=== PATIENT | female | born 1955 | race Caucasian/White ===

== ENCOUNTER → 2016-10-16 | Outpatient (CLI) | payer OTHER ==
[~2016-10-16] MED LIST: ASPI325T32 PO; HYDR-3498 PO; PANT40TA4 PO; TRAM50TA2 PO
== END | disposition home or self-care (01) ==
LOC: HKI 10:48
PROVIDERS: ATTEND Orthopaedic Surgery
DX: Z01.818 Encounter for other preprocedural examination (principal); M16.11 Unilateral primary osteoarthritis, right hip
CPT/HCPCS: G0463

== ENCOUNTER 2016-10-22 08:08 | Inpatient (IN) | payer OTHER ==
[2016-10-16 13:22] VITALS: BMI 28.9
[~2016-10-22] VITALS: Ht 175.3 cm; Wt 87.2 kg
[2016-10-22] VITALS (47 sets, daily range): BP systolic 113–146; BP diastolic 61–81; PULSE 48–65; RESP 10–31; Ht 175.3 cm; Wt 87.2 kg
[2016-10-22] MEDS: LACTATED RINGER'S 1,000 ML IV SCH ×4 (07:00→21:20)
[~2016-10-22 08:08] MED LIST changes: -ASPI325T32 PO; +BUPIVACAINE LIPOSOME/PF 266 MG/20 ML VIAL INFIL ONE; +CEFAZOLIN 2GM/50 ML (PMX) 50 ML X1 BEFORE INCISION IVPB ONE; +CELECOXIB 400 MG PO X1 DOSE PO ONE; -HYDR-3498 PO; +LACTATED RINGER'S 1,000 ML IV SCH; +LIDOCAINE 2% (SDV) 5 ML INJ ONE; +PAIN COCKTAIL-CEFUROXIME IRR ONE; -PANT40TA4 PO; +PREGABALIN 300 MG PO X1 PO ONE; +SOD CHLORIDE 0.9% IV ONE; -TRAM50TA2 PO; +TRANEXAMIC ACID 880 MG in SOD CHLORIDE 0.9% 100 ML IVPB ONE; +TRANEXAMIC ACID 890 MG in SOD CHLORIDE 0.9% 100 ML IVPB ONE; +TRANEXAMIC ACID IV ONE; +oxyCODONE (CR) 10 MG TAB [oxyCONTIN] X1 DOSE PO ONE; +traMADOL 50 MG TAB X 1 DOSE PO ONE
[2016-10-22] MEDS ORDERED: EXPAREL NOTE (BUPIVICAINE LIPOSOMAL) XX SCH ×2 (09:00→18:00)
[2016-10-22] MEDS ORDERED: FENTAnyl 50 MCG/ML VIAL ONE (09:39)
[2016-10-22] MEDS ORDERED: GLYCOPYRROLATE 0.4 MG INJ ONE (09:39)
[2016-10-22] MEDS ORDERED: MIDAZOLAM 1 MG/ML 2 ML INJ ONE (09:39)
[2016-10-22] MEDS ORDERED: ROCURONIUM 50 MG INJ ONE (09:39)
[2016-10-22] MEDS ORDERED: ONDANSETRON 4 MG INJ ONE (09:39)
[2016-10-22] MEDS ORDERED: NEOSTIGMINE 3 MG/3 ML SYRINGE ONE (09:39)
[2016-10-22] MEDS ORDERED: PROPOFOL 20 ML ONE (09:39)
[2016-10-22] MEDS ORDERED: CEFAZOLIN 1 GM INJ ONE (09:39)
[2016-10-22] MEDS ORDERED: DEXAMETHASONE 4 MG/ML 1 ML INJ ONE (09:40)
--- NOTE | 2016-10-22 10:19 | HPN ---
Date/Time of Note Date/Time of Note DATE: 10/22/16 TIME: 10:18 Interval H&P Admission Note Pt. seen H&P reviewed: No system changes No changes from H&P on 10/07/16 by DEYANIRA Angel MD October 22, 2016 10:19
[2016-10-22] MEDS ORDERED: VANCOMYCIN 1 GM INJ ONE (10:49)
[2016-10-22] MEDS ORDERED: POLYMYXIN B 500000 UNIT INJ ONE (10:49)
[2016-10-22] MEDS ORDERED: PROPOFOL 100 ML ONE (11:55)
[2016-10-22] MEDS ORDERED: DIPHENHYDRAMINE 50 MG INJ IV PRN (12:00)
[2016-10-22] MEDS ORDERED: LABETALOL HCL 20MG INJ IV PRN (12:00)
[2016-10-22] MEDS ORDERED: MIDAZOLAM 1 MG/ML 2 ML INJ IV PRN (12:00)
[2016-10-22] MEDS ORDERED: HYDROmorphONE (0.2 MG/ML) 10ML SYG IV PRN ×3 (12:00)
[2016-10-22] MEDS ORDERED: TRIMETHOBENZAMIDE 100 MG/ML VIAL IM PRN (12:00)
[2016-10-22] MEDS ORDERED: EPHEDrine SULFATE 50 MG/5 ML SYG IV PRN (12:00)
[2016-10-22] MEDS ORDERED: FENTAnyl 50 MCG/ML VIAL IV PRN ×3 (12:00)
[2016-10-22] MEDS ORDERED: hydrALAzine 20 MG INJ IV PRN (12:00)
[2016-10-22] MEDS ORDERED: MEPERIDINE 25 MG INJ IV PRN (12:00)
[2016-10-22] MEDS ORDERED: ONDANSETRON 4 MG INJ IV PRN ×2 (12:00→14:00)
[2016-10-22] MEDS ORDERED: BACITRACIN 50000 UNITS INJ IRR ONE (12:00)
[2016-10-22] MEDS ORDERED: BACITRACIN 50000 UNITS INJ ONE (12:05)
--- NOTE | 2016-10-22 13:28 | RADRPT ---
PROCEDURE: Fluoroscopic guidance with x-ray images during right total hip replacement. CLINICAL INDICATION: Right total hip replacement. TECHNIQUE: 11 x-ray images were obtained during right total hip replacement. COMPARISON: None available FINDINGS: 8.4 of fluoroscopy time was utilized during pacemaker insertion. 11 x-ray images were obtained duri ng the procedure in progress for guidance. Cumulative dose total is 5.88 mGy and 0.174 mGym2. The ri ght total hip replacement is in good position and alignment. No acute osseous fractures seen. Proc edure was performed by . IMPRESSION: 1. Fluoroscopic guidance with x-ray images obtained for right total hip replacement. RPTAT: XX .Shahzad Olson MD, Date Time Electronically viewed and signed by .Shahzad Olson MD, on 10/22/2016 13:28 .T/
--- NOTE | 2016-10-22 13:35 | OPR ---
Date/Time of Note Date/Time of Note DATE: 10/22/16 TIME: 13:34 Operative Report Free Text/Dictation Dictation # [id number] Procedure Date: October 22, 2016 Preoperative Diagnosis Right Hip OA Postoperative Diagnosis Same Operation Performed Right Anterior ARIELA Surgeon: DEYANIRA MOORE MD librarian assistant: PAULO ANTON PA-C Anesthesia: general, spinal Anesthesiologist: Oscar Garber M.D. Estimated Blood Loss: 250 - 300 ml's Specimens Femoral Head Tubes/Drains Hemovac x 1 Complications: None Pt Condition Post Procedure: stable Disposition: PACU DEYANIRA MOORE MD October 22, 2016 13:35
[2016-10-22] MEDS ORDERED: NA PHOSPHATE/BIPHOS 133 ML ENEMA PR PRN (14:00)
[2016-10-22] MEDS ORDERED: MAGNESIUM HYDROXIDE 30ML CUP PO PRN (14:00)
[2016-10-22] MEDS: CEFAZOLIN 2 GM/50 ML (PMX) 50 ML IVPB SCH ×2 (14:00→21:58)
[2016-10-22] MEDS ORDERED: ASPIRIN (EC) 325 MG TAB PO ONE (14:00)
[2016-10-22] MEDS ORDERED: DIPHENHYDRAMINE 25 MG CAP PO PRN (14:00)
[2016-10-22] MEDS ORDERED: HYDROmorphONE 1 MG/ML SYG IV PRN (14:00)
[2016-10-22] MEDS ORDERED: BISACODYL 10 MG SUPP PR PRN (14:00)
[2016-10-22] MEDS ORDERED: NACL 0.9% 3 ML SYG IV SCH (14:00)
[2016-10-22 14:02] LABS: HEMATOCRIT 30.8 % (37.0-47.0); HEMOGLOBIN 10.5 g/dl (12.0-16.0)
[2016-10-22 14:04] LABS: CALCIUM 8.6 mg/dl (8.4-10.2); CREATININE 0.56 mg/dl (0.44-1.00); POTASSIUM 3.7 mmol/L (3.5-5.1)
--- NOTE | 2016-10-22 14:20 | OPR ---
DATE OF OPERATION: 10/22/2016 PREOPERATIVE DIAGNOSIS: Right hip osteoarthritis. POSTOPERATIVE DIAGNOSIS: Right hip osteoarthritis. OPERATION PERFORMED: Right anterior total hip arthroplasty. SURGEON: Deyanira Waggoner MD TRANSITION SOCIAL WORKER: GAEL Teran COMPONENTS USED: DePuy size 54 mm Gription [place] cup, 54/36 neutral AltrX polyethylene liner, si ze 6 standard Actis stem, 36+1.5 ceramic head. ANESTHESIA: Spinal plus general endotracheal intubation plus periarticular injection. ANESTHESIOLOGIST: Dr. Jcarlos MD ESTIMATED BLOOD LOSS: 300 mL. INTRAVENOUS FLUIDS: Two liters crystalloid. SPECIMENS: Femoral head. DRAINS: Hemovac x1. COMPLICATIONS: None. DISPOSITION: Patient tolerated procedure well and was taken to the recovery room in stable [facility] n. INDICATIONS: The patient is a 60-year-old woman who has had progressive worsening pain in the right hip with radiographic evidence of severe osteoarthritis. She has failed nonsurgical means of treat ment to control her pain including activity modifications, pain medications and ambulatory assist de vices. Despite these measures, she has had worsening pain and I felt she would benefit from a total hip arthroplasty through an anterior approach. I felt the patient would benefit from a total hip arthroplasty through an anterior approach. The risks, benefits, and alternatives of the procedure were explained in detail to the patient. I e xplained the risks of the surgery to include, but not be limited to: bleeding and possible need for blood transfusion; infection; pain; stiffness; neurovascular injury with possible numbness, weakness , and/or paralysis anywhere from the hip down to the toes; fracture; instability; dislocation; leg l ength inequality; wear and/or loosening of the prosthesis and possible need for future revision; blo od clots; pulmonary embolism; and anesthetic complications such as heart attack, stroke, GI bleed, p neumonia, and/or . Ample time was allowed for the patient to ask questions, all of which were addressed and answered. The patient understood the risks involved and wished to proceed. Informed c onsent was signed prior to the procedure. PROCEDURE: The patient's right hip was initialed with a marking pen in the preoperative area to iden tify the correct operative site. The patient was brought to the operating room and transferred from the [facility] to the CECIL table where a spinal anesthetic was administered. The patient was then anesthetized and intubated. A Casas catheter was placed. Both feet were placed into well-padd ed boots which were then placed into the leg holders of the traction booms. A timeout was performed to confirm that the right side was the correct operative site. The patient was given 2 g of intrav enous Ancef within one hour prior to the procedure. The operative hip was prepped and draped in the usual sterile fashion. A 10 cm oblique incision was made over the anterior aspect of the hip and carried down through subcu taneous tissue and fat with sharp dissection. The tensor fascia yomaira was incised along the length o f the wound. The tensor fascia muscle was retracted laterally and the sartorius medially. The anter ior circumflex vessels were identified and tied off with 2-0 silk suture and coagulated with the [employer] chester [employer] driver. The rectus femoris was elevated off the anterior capsule and an anterior capsu lectomy performed. A femoral neck osteotomy was made and the head removed from the acetabulum. The acetabulum was denuded of cartilage circumferentially, as was the femoral head. Retractors were pl aced around the acetabulum. The remnants of the labrum and ligamentum teres were excised. I reamed the acetabulum to the medial wall and then went into an anatomic position and increased the reamer size in 2 mm increments until I got a good bite and was down to bleeding subchondral bone. The [place] cup was opened and impacted into the acetabulum and sat flush circumferentially, gettin g a good bite. C-arm imaging showed it had about 40 to 45 degrees of abduction and 20 degrees of ant eversion. (The real liner was opened and impacted into the acetabulum and sat flush circumferentiall y. Attention was turned towards the femur. The operative leg was carefully lowered to the floor with the leg adducted. The foot was then exter dinora rotated to approximately 110 degrees. A posteromedial release was performed to optimize expos ure. The femoral hook was placed underneath the proximal femur and the hydraulic lift was then used to elevate the femur up out of the wound. The dallin cutter osteotome was used to remove the remai xenia overhanging greater trochanter. The femur was then broached, going up in one size increments u ntil it sat flush with the neck cut and a stable fit was achieved. The trial neck and head were ass embled and reduced into the acetabulum. Fluoroscopic imaging showed the components to be in good pos ition and the leg lengths and offsets to be equal. At this point, the trial was dislocated and the trial broach removed. The canal was irrigated and d ried. The real stem was opened and impacted into the femur. The trunnion was irrigated and dried, a nd the real femoral head was impacted onto the trunnion, and reduced into the acetabulum. The soft tissues were infiltrated with a mixture of 150 mg of 0.5% Bupivacaine, 8 mg of Duramorph, 3 00 mcg of epinephrine, 30 mg of Toradol, 100 mcg of clonidine, 750 mg of cefuroxime and 86 mL of nor mal saline, followed by an injection of 266 mg of liposomal Bupivacaine. At this point the hip was irrigated with a mixture of betadine/saline and then antibiotic saline with pulsatile lavage. A Hem ovac drain was placed in the deep portion of the wound and brought out the anterolateral thigh. Ther e was good hemostasis. The tensor fascia yomaira was repaired with a running #1 Vicryl. The deep fat layer was irrigated and closed with 2-0 Stratafix and the subcutaneous layer closed with 3-0 Vicryl and the skin was closed with corazon and then sealed with Dermabond. The drain was secured with 3-0 nylon. The sponge and needle counts were correct at the end of the case. The wound was covered with an occ lusive dressing. The patient was awakened, extubated, and taken to the recovery room in stable cond ition. Dictated By: DEYANIRA PIERRE/BIJAN Conf#: [id number] DID#: [id number]
--- NOTE | 2016-10-22 14:38 | RADRPT ---
PROCEDURE: XR Pelvis. CLINICAL INDICATION: Status post right hip replacement. TECHNIQUE: Single low AP view of the pelvis. COMPARISON: April 29, 2016 FINDINGS: Right hip replacement is identified. The prosthetic components are in appropriate position and alig nment. The osseous structures are intact. No destructive bony lesions are observed. Mild narrowin g of the left hip joint is identified. Surgical drain is seen of the left hip. Soft tissue air ove r the left hip is procedural in nature. Multiple phleboliths are noted in the pelvis.. IMPRESSION: Right hip replacement. Prosthetic components are in appropriate position and alignment. Mild osteoarthritis of the left hip. RPTAT: AA .Weston Tse MD, MD Date Time Electronically viewed and signed by .Weston Tse MD, on 10/22/2016 14:38 .P/
--- NOTE | 2016-10-22 16:07 | CONS ---
Date/Time of Note Date/Time of Note DATE: 10/22/16 TIME: 16:01 Assessment/Plan Assessment/Plan Chief Complaint/Hosp Course Very pleasant 60-year-old female who was admitted for elective right total hip arthroplasty with no significant past medical history for whom we are consulted for medical management. PLAN: * Supportive care / Pain control / antiemetics as needed * Prophylaxis: PPI for GI / DVT per Ortho Problems: Consultation Date/Type/Reason Admit Date/Time October 22, 2016 at 08:08 Date of Consultation: October 22, 2016 Type of Consultation: Medical Reason for Consultation Medical management Referring Provider: DEYANIRA MOORE MD Hx of Present Illness This is a 60-year-old female who was admitted for an elective total right hip arthroplasty. She has undergone the posterior procedure without difficulty or complication and she is being admitted for postop care management. We have been consulted for medical management. Her only medical history is arthritis and that right hip, and this is likely due to abnormalities in gait. At this time the patient is quite alert and she is in a fairly good mood. Regarding pain she reports being quite comfortable. She has no other symptoms. She is optimistic about leaving the hospital as soon as possible. Past Medical History * Osteoarthritis right hip. Past Surgical History Breast lumpectomy 3 Pilonidal cyst excision oophorectomy . Family History Significant Family History: no pertinent family hx Social History Alcohol Use: none Smoking Status: Former smoker (Very many years ago) Drug Use: none Exam/Review of Systems Vital Signs Vitals VS - Last 72 Hours, by Label Date Time Temp Pulse Resp B/P Pulse Ox O2 Delivery O2 Flow Rate FiO2 10/22/16 15:19 49 21 131/72 100 Nasal Cannula 2.0 10/22/16 15:14 49 18 126/67 100 Nasal Cannula 2.0 10/22/16 15:09 60 21 120/75 100 Nasal Cannula 2.0 10/22/16 15:04 58 22 124/65 100 Nasal Cannula 2.0 10/22/16 14:59 62 18 129/68 99 Nasal Cannula 2.0 10/22/16 14:54 60 19 136/69 100 Nasal Cannula 2.0 10/22/16 14:49 60 20 130/78 100 Nasal Cannula 2.0 10/22/16 14:44 60 21 130/78 100 Nasal Cannula 2.0 10/22/16 14:39 58 15 140/72 100 Nasal Cannula 2.0 10/22/16 14:34 60 20 129/72 100 Nasal Cannula 2.0 10/22/16 14:29 60 20 128/72 100 Nasal Cannula 2.0 10/22/16 14:24 64 21 127/78 100 Nasal Cannula 2.0 10/22/16 14:19 64 17 127/76 100 Nasal Cannula 2.0 10/22/16 14:14 60 17 120/79 100 Nasal Cannula 2.0 10/22/16 14:09 58 17 126/77 100 Nasal Cannula 2.0 10/22/16 14:04 58 17 125/81 100 Nasal Cannula 2.0 10/22/16 13:59 62 17 121/76 100 Nasal Cannula 2.0 10/22/16 13:54 60 19 126/77 100 Nasal Cannula 2.0 10/22/16 13:49 52 20 136/68 100 Nasal Cannula 2.0 10/22/16 13:44 58 16 113/68 100 Nasal Cannula 2.0 10/22/16 13:39 62 18 123/75 100 Nasal Cannula 2.0 10/22/16 13:39 98.6 10/22/16 13:35 62 18 123/75 100 Nasal Cannula 2.0 10/22/16 13:30 98.6 65 18 115/68 99 Nasal Cannula 2.0 10/22/16 09:25 97.6 57 16 136/78 98 Room Air Vital Signs Date Time Temp Pulse Resp B/P Pulse Ox O2 Delivery O2 Flow Rate FiO2 10/22/16 15:19 49 21 131/72 100 Nasal Cannula 2.0 10/22/16 13:39 98.6 Exam GENERAL: Patient is alert, oriented x 3, in no apparent distress; does not appear acutely or chronically ill. .Patient makes good eye contact, is conversant, interactive, coherent. Patient appears calm and comfortable and is able to follow commands. HEENT: Oropharynx is clear. There is no carotid bruit, no masses. Patient's pupils are equal, round and reactive to light bilaterally. Extraocular motions are intact. There is no scleral icterus. There is no facial asymmetry. NECK: Supple. LUNGS: Clear to auscultation bilaterally with good air entry. No Wheezes or crackles. HEART: S1, S2. No murmur, gallops or rubs. Regular rate and rhythm. ABDOMEN: Soft, nontender. Normoactive bowel sounds. There are no stigmata of chronic liver disease. BACK: no costovertebral angle tenderness. GENITOURINARY: Deferred. EXTREMITIES: No edema. There is no cyanosis, clubbing. There are 2+ pulses bilaterally distally. Lateral side of right hip is covered in Silvadene dressing with tiny drain in place. NEUROLOGIC: The patient has no lateralizing signs. Cranial nerves II-XII are intact. Results Result Diagram: 10/22/16 1330 10/22/16 1330 Results 24 hrs Laboratory Tests Test 10/22/16 13:30 Hemoglobin 10.5 L Hematocrit 30.8 L Sodium Level 139 Potassium Level 3.7 Chloride Level 111 H Carbon Dioxide Level 26 Anion Gap 6 L Blood Urea Nitrogen 10 Creatinine 0.56 Glucose Level 127 Calcium Level 8.6 Medications Medications Current Medications Lactated Ringer's (Lr) 1,000 ml @ 100 mls/hr Q10H IV ; Start 10/22/16 at 07:00 Miscellaneous Information 1 ea 1 ea NOTE XX ; Start 10/22/16 at 09:00; Stop 10/26 at 08:59 Lactated Ringer's (Lr) 1,000 ml @ 125 mls/hr Q8H IV ; Start 10/22/16 at 13:33 Celecoxib (Celebrex) 200 mg DAILY PO ; Start 10/23/16 at 09:00 Tramadol HCl (Ultram) 50 mg Q6 PO ; Start 10/22/16 at 18:00; Stop 10/25/16 at 17: 59 Acetaminophen/ Hydrocodone Bitart ([place] (5/325)) 1 tab Q4H PRN PO PAIN LEVEL 1 -3; Start 10/22/16 at 14:00 Acetaminophen/ Hydrocodone Bitart ([place] (5/325)) 2 tab Q4H PRN PO PAIN LEVEL 4 -7; Start 10/22/16 at 14:00 Hydromorphone HCl 1 mg 1 mg Q3H PRN IV PAIN LEVEL 8-10; Start 10/22/16 at 14:00 Cefazolin Sodium/ Dextrose (Ancef 2 Gm/50 ml (Pmx)) 50 ml @ 100 mls/hr Q8H IVPB ; Start 5/30/17 at 14:00; Stop 10/23/16 at 06:29 Ondansetron HCl (Zofran Inj) 4 mg Q6H PRN IV NAUSEA AND/OR VOMITING; Start at 14:00 Bisacodyl (Dulcolax Supp) 10 mg Q12H PRN MD CONSTIPATION; Start 10/22/16 at 14: 00 Magnesium Hydroxide (Milk Of Mag) 30 ml BID PRN PO CONSTIPATION; Start at 14:00 Sodium Biphosphate/ Sodium Phosphate (Fleet Enema) 133 ml DAILY PRN MD CONSTIPATION; Start 10/22/16 at 14:00 Docusate Sodium (Colace) 100 mg BID PO ; Start 10/22/16 at 21:00 Diphenhydramine HCl (Benadryl) 25 mg Q6H PRN PO PRURITUS; Start 10/22/16 at 14: 00 Aspirin (Ecotrin) 325 mg BID PO ; Start 10/23/16 at 09:00 Pantoprazole (Protonix Tab) 40 mg BID@06,18 PO ; Start 10/22/16 at 18:[address] that, since thisPROCEDURE: XR Pelvis. CLINICAL INDICATION: Status post right hip replacement. TECHNIQUE: Single low AP view of the pelvis. COMPARISON: April 29, 2016 FINDINGS: Right hip replacement is identified. The prosthetic components are in appropriate position and alignment. The osseous structures are intact. No destructive bony lesions are observed. Mild narrowing of the left hip joint is identified. Surgical drain is seen of the left hip. Soft tissue air over the left hip is procedural in nature. Multiple phleboliths are noted in the pelvis.. IMPRESSION: Right hip replacement. Prosthetic components are in appropriate position and alignment. Mild osteoarthritis of the left hip. RPTAT: AA .Weston Tse MD, MD Date Time Electronically viewed and signed by .Weston Tse MD, MD on 10/22/2016 14:38 .P/ CC: PAULO ANTON PA-C MEETA PULIDO October 22, 2016 16:07
--- NOTE | 2016-10-22 16:44 | PN ---
Date/Time of Note Date/Time of Note DATE: 10/22/16 TIME: 16:42 Assessment/Plan Lines/Catheters IV Catheter Type (from Nrsg): Peripheral IV Nevarez in Place (from Nrsg): Yes Assessment/Plan Assessment/Plan Stable in PACU, s/p right anterior ARIELA -continue Ancef until drains removed -pain meds as needed -ASA/SCDs for DVT prophylaxis -OOB with PT -check AM labs -monitor drain -d/c nevarez in AM XR of the right hip shows good alignment with no evidence of fracture or dislocation Subjective 24 Hr Interval Summary Stable in PACU. Denies pain. Moving all extremities. Exam/Review of Systems Vital Signs Vitals Vital Signs Date Time Temp Pulse Resp B/P Pulse Ox O2 Delivery O2 Flow Rate FiO2 10/22/16 16:10 50 13 122/72 100 Nasal Cannula 2.0 10/22/16 13:39 98.6 Exam Free Text/Dictation Hemovac: minimal Dressing dry Incision clean, dry, and intact without redness or drainage 09/27 Quadriceps, Tibialis Anterior, EHL, Gastroc, Soleus, Peroneals Normal sensation Palpable DT/PT, CR <2 sec No distal edema Results Result Diagram: 10/22/16 1330 10/22/16 1330 PAULO ANTON PA-C October 22, 2016 16:43
[2016-10-22] MEDS: HYDROCODONE/APAP (5/325) TAB PO PRN ×2 (16:45→17:00)
[2016-10-22] MEDS ORDERED: TRANEXAMIC ACID 870 MG in SOD CHLORIDE 0.9% 100 ML IVPB ONE ×2 (17:00→20:00)
[2016-10-22] MEDS: traMADol 50 MG TAB PO SCH (18:07)
[2016-10-22] MEDS: PANTOPRAZOLE (EC) 40 MG TAB PO SCH (18:07)
[2016-10-22] MEDS ORDERED: VITAMIN A & D 5 GM OINT PACKET TOP ONE (19:51)
[2016-10-22] MEDS: DOCUSATE SODIUM 100 MG CAP PO SCH (20:14)
[2016-10-23 00:40] VITALS: BP 145/74; PULSE 60; RESP 18
[2016-10-23] MEDS: LACTATED RINGER'S 1,000 ML IV SCH ×2 (02:50→05:06)
[2016-10-23 05:03] LABS: HEMATOCRIT 31.5 % (37.0-47.0); HEMOGLOBIN 10.3 g/dl (12.0-16.0)
[2016-10-23] MEDS: CEFAZOLIN 2 GM/50 ML (PMX) 50 ML IVPB SCH (05:03)
[2016-10-23] MEDS: PANTOPRAZOLE (EC) 40 MG TAB PO SCH ×2 (05:05→17:39)
[2016-10-23] MEDS: traMADol 50 MG TAB PO SCH ×4 (05:05→17:40)
[2016-10-23 05:46] LABS: POTASSIUM 4.7 mmol/L (3.5-5.1)
[2016-10-23 05:48] LABS: CREATININE 0.69 mg/dl (0.44-1.00)
[2016-10-23 05:49] LABS: CALCIUM 8.6 mg/dl (8.4-10.2)
[2016-10-23 07:35] VITALS: BP 111/60; RESP 18
--- NOTE | 2016-10-23 08:36 | PN ---
Date/Time of Note Date/Time of Note DATE: 10/23/16 TIME: 08:35 Assessment/Plan Lines/Catheters IV Catheter Type (from Nrsg): Peripheral IV Casas in Place (from Nrsg): Yes Assessment/Plan Assessment/Plan Stable POD #1, s/p right anterior ARIELA -d/c Ancef -pain meds as needed -ASA/SCDs for DVT prophylaxis -OOB with PT -check AM labs -drain removed -d/c planning. Will plan to go home upon discharge Subjective 24 Hr Interval Summary No acute overnight events. Denies significant pain. Did not start PT yesterday. VSS, afebrile. Will plan for home upon discharge. Exam/Review of Systems Vital Signs Vitals Vital Signs Date Time Temp Pulse Resp B/P Pulse Ox O2 Delivery O2 Flow Rate FiO2 10/23/16 07:35 98.0 60 18 111/60 99 10/23/16 00:40 Nasal Cannula 2.0 Intake and Output 10/22/16 10/22/16 10/23/16 15:00 23:00 07:00 Intake Total 3000 ml 608.7 ml 2250 ml Output Total 1150 ml 1230 ml 1880 ml Balance 1850 ml -621.3 ml 370 ml Exam Free Text/Dictation Hemovac: 210cc Dressing dry Incision clean, dry, and intact without redness or drainage 5 Quadriceps, Tibialis Anterior, EHL, Gastroc, Soleus, Peroneals Normal sensation Palpable DT/PT, CR <2 sec No distal edema Results Result Diagram: 10/23/168 10/23/16 0448 PAULO ANTON PA-C October 23, 2016 08:36
[2016-10-23] MEDS: CELECOXIB 200 MG CAP PO SCH (08:53)
[2016-10-23] MEDS: DOCUSATE SODIUM 100 MG CAP PO SCH ×2 (08:53→21:36)
[2016-10-23] MEDS: ASPIRIN (EC) 325 MG TAB PO SCH ×2 (08:53→21:36)
[2016-10-23] MEDS: HYDROCODONE/APAP (5/325) TAB PO PRN ×2 (09:00→14:56)
--- NOTE | 2016-10-23 09:01 | PN ---
Date/Time of Note Date/Time of Note DATE: 10/23/16 TIME: 08:39 Assessment/Plan VTE Prophylaxis VTE Prophylaxis Intervention: SCD's Lines/Catheters IV Catheter Type (from Nrsg): Peripheral IV Urinary Cath still in place: Yes Reason Cath still needed: other (indicate) Assessment/Plan Chief Complaint/Hosp Course Very pleasant 60-year-old female who was admitted for elective right total hip arthroplasty with no significant past medical history for whom we are consulted for medical management. PLAN: * Continue Supportive care / Pain control / antiemetics as needed * PT eval pending / KVO IV if patient is tolerating diet * Prophylaxis: PPI for GI / DVT per Ortho Problems: Subjective 24 Hr Interval Summary Free Text/Dictation Patient seen and examined. no new issues awaiting PT eval Exam/Review of Systems Vital Signs Vitals Vital Signs Date Time Temp Pulse Resp B/P Pulse Ox O2 Delivery O2 Flow Rate FiO2 10/23/16 07:35 98.0 60 18 111/60 99 10/23/16 00:40 Nasal Cannula 2.0 Intake and Output 10/22/16 10/22/16 10/23/16 15:00 23:00 07:00 Intake Total 3000 ml 608.7 ml 2250 ml Output Total 1150 ml 1230 ml 1880 ml Balance 1850 ml -621.3 ml 370 ml Exam GENERAL: Patient is alert, oriented x 3, in no apparent distress; does not appear acutely or chronically ill. .Patient makes good eye contact, is conversant, interactive, coherent. Patient appears calm and comfortable and is able to follow commands. HEENT: Oropharynx is clear. There is no carotid bruit, no masses. Patient's pupils are equal, round and reactive to light bilaterally. Extraocular motions are intact. There is no scleral icterus. There is no facial asymmetry. NECK: Supple. LUNGS: Clear to auscultation bilaterally with good air entry. No Wheezes or crackles. HEART: S1, S2. No murmur, gallops or rubs. Regular rate and rhythm. ABDOMEN: Soft, nontender. Normoactive bowel sounds. There are no stigmata of chronic liver disease. BACK: no costovertebral angle tenderness. GENITOURINARY: Deferred. EXTREMITIES: No edema. There is no cyanosis, clubbing. There are 2+ pulses bilaterally distally. Lateral side of right hip is covered in Silvadene dressing with tiny drain in place. NEUROLOGIC: The patient has no lateralizing signs. Cranial nerves II-XII are intact. Results Result Diagram: 10/23/16 0448 10/23/16 0448 Results 24 hrs Laboratory Tests Test 10/22/16 13:30 10/23/16 04:48 Hemoglobin 10.5 L 10.3 L Hematocrit 30.8 L 31.5 L Sodium Level 139 140 Potassium Level 3.7 4.7 Chloride Level 111 H 111 H Carbon Dioxide Level 26 30 Anion Gap 6 L 4 L Blood Urea Nitrogen 10 11 Creatinine 0.56 0.69 Glucose Level 127 133 Calcium Level 8.6 8.6 Medications Medications Current Medications Lactated Ringer's (Lr) 1,000 ml @ 100 mls/hr Q10H IV Last administered on 10/23 02:50; Admin Dose 100 MLS/HR; Start 10/22/16 at 07:00 Miscellaneous Information 1 ea 1 ea NOTE XX ; Start 10/22/16 at 09:00; Stop 10/26 at 08:59 Lactated Ringer's (Lr) 1,000 ml @ 125 mls/hr Q8H IV Last administered on 18:14; Admin Dose 125 MLS/HR; Start 10/22/16 at 13:33 Celecoxib (Celebrex) 200 mg DAILY PO ; Start 10/23/16 at 09:00 Tramadol HCl (Ultram) 50 mg Q6 PO Last administered on 10/23/16 05:05; Admin Dose 50 MG; Start 10/22/16 at 18:00; Stop 10/25/16 at 17:59 Acetaminophen/ Hydrocodone Bitart ([place] (5/325)) 1 tab Q4H PRN PO PAIN LEVEL 1 -3 Last administered on 10/22/16 17:00; Admin Dose 1 TAB; Start 10/22/16 at 14: 00 Acetaminophen/ Hydrocodone Bitart ([place] (5/325)) 2 tab Q4H PRN PO PAIN LEVEL 4 -7; Start 10/22/16 at 14:00 Hydromorphone HCl (Dilaudid) 1 mg Q3H PRN IV PAIN LEVEL 8-10; Start 10/22/16 at 14:00 Ondansetron HCl (Zofran Inj) 4 mg Q6H PRN IV NAUSEA AND/OR VOMITING; Start at 14:00 Bisacodyl (Dulcolax Supp) 10 mg Q12H PRN [place] CONSTIPATION; Start 10/22/16 at 14: 00 Magnesium Hydroxide (Milk Of Mag) 30 ml BID PRN PO CONSTIPATION; Start at 14:00 Sodium Biphosphate/ Sodium Phosphate (Fleet Enema) 133 ml DAILY PRN [place] CONSTIPATION; Start 10/22/16 at 14:00 Docusate Sodium (Colace) 100 mg BID PO ; Start 10/22/16 at 21:00 Diphenhydramine HCl (Benadryl) 25 mg Q6H PRN PO PRURITUS; Start 10/22/16 at 14: 00 Aspirin (Ecotrin) 325 mg BID PO ; Start 10/23/16 at 09:00 Pantoprazole (Protonix Tab) 40 mg BID@06,18 PO Last administered on 10/23/16t 05:05; Admin Dose 40 MG; Start 10/22/16 at 18:00 MEETA PULIDO October 23, 2016 08:49
[2016-10-23 09:06] LABS: ALBUMIN 3.4 g/dl (3.3-4.9); TOTAL PROTEIN 5.4 g/dl (6.1-8.1)
[2016-10-23 09:07] LABS: BILIRUBIN,INDIRECT 0.5 mg/dl (0-1.1); BILIRUBIN,TOTAL 0.5 mg/dl (0.2-1.3); CHOL/HDL RATIO 1.8 RATIO
[2016-10-23 09:35] LABS: THYROID STIMULATING HORMONE 0.683 MIU/L (0.465-4.680)
[2016-10-23 19:51] VITALS: BP 108/60; RESP 20
[2016-10-24] MEDS: traMADol 50 MG TAB PO SCH ×3 (00:18→12:09)
[2016-10-24] MEDS: HYDROCODONE/APAP (5/325) TAB PO PRN (02:50)
[2016-10-24 05:16] LABS: HEMATOCRIT 29.5 % (37.0-47.0); HEMOGLOBIN 9.6 g/dl (12.0-16.0)
[2016-10-24] MEDS: PANTOPRAZOLE (EC) 40 MG TAB PO SCH (05:22)
[2016-10-24 05:48] LABS: CALCIUM 8.5 mg/dl (8.4-10.2); CREATININE 0.68 mg/dl (0.44-1.00); POTASSIUM 4.4 mmol/L (3.5-5.1)
--- NOTE | 2016-10-24 07:28 | PDOCDIS ---
Discharge Instructions DIAGNOSIS Discharge Diagnosis: s/p right anterior ARIELA CONDITION Patient Condition: Good HOME CARE INSTRUCTIONS: Diet Instructions: Regular ACTIVITY: Activity Restrictions: Slowly Increase Activity Rest between Activity Avoid heavy lifting Do not operate Machinery Do not operate Power Tool Avoid Heavy Housework Keep Limb Elevated Bathing Restrictions: Shower FOLLOW UP/APPOINTMENTS Appointments follow up in the office on 11/01/16 OTHER ORDERS: Other Orders: S/P Anterior ARIELA Physical Therapy: Three times per week at home x 2 weeks Daily in Rehab/SNF WB STATUS: WBAT Strengthening exercises for both upper and un-operated lower extremities. 1. Gait training with front wheeled walker 2. Wide base gait, no pivot turns. 3. Abductor strengthening. 4. Quadriceps and hamstring strengthening. 5. May switch to cane in contra lateral hand 6 weeks after surgery. 6. Physical Therapy can open case if nursing is not available. 7. Ice Packs while at rest to surgical wound for 20 minutes, 3 times/day. 8. Patient requires mobile SCDs to reduce risk of developing DVT following ARIELA. Patient will use the mobile SCDs for 30 days postoperatively. Hip Precautions: No posterior hip precautions. Bathing assistance by home health aide twice weekly if Medicare patient. Occupational Therapy: Evaluation for assistive devices and ADL training. Wound Care: Keep incision dry & covered with Tegaderm until first visit with Dr. Waggoner Anticoagulation Orders: Enteric Coated Aspirin 325 mg po bid x 6 weeks from date of surgery Follow-up:Call for an appointment with Dr. Waggoner in 1 week after discharged from hospital at DME Orders: ZAC, 3-in-1 Commode, Mobile SCDs PAULO ANTON PA-C Oct 24, 2016 07:28
[2016-10-24] MEDS ORDERED: PANT40TA4 PO (07:30)
[2016-10-24] MEDS ORDERED: HYDR-3498 PO (07:30)
[2016-10-24] MEDS ORDERED: TRAM50TA2 PO (07:30)
[2016-10-24] MEDS ORDERED: ASPI325T32 PO (07:30)
[2016-10-24 08:35] VITALS: BP 111/58; RESP 18
--- NOTE | 2016-10-24 09:17 | PN ---
Date/Time of Note Date/Time of Note DATE: 10/24/16 TIME: 09:16 Assessment/Plan VTE Prophylaxis VTE Prophylaxis Intervention: SCD's Lines/Catheters IV [facility]from [facility] Saline Lock Urinary Cath still in place: No Assessment/Plan Chief Complaint/Hosp Course Very pleasant 60-year-old female who was admitted for elective right total hip arthroplasty with no significant past medical history for whom we are consulted for medical management. PLAN: * Continue Supportive care / Pain control / antiemetics as needed * PT eval pending / KVO IV if patient is tolerating diet * Prophylaxis: PPI for GI / DVT per Ortho Problems: Subjective 24 Hr Interval Summary Free Text/Dictation patient feels well. Planned for discharge today. Exam/Review of Systems Vital Signs Vitals Vital Signs Date Time Temp Pulse Resp B/P Pulse Ox O2 Delivery O2 Flow Rate FiO2 10/24/16 08:35 99.2 62 18 111/58 94 10/23/16 00:40 Nasal Cannula 2.0 Intake and Output 10/23/16 10/23/16 10/24/16 14:59 22:59 06:59 Intake Total 920 ml 1400 ml Output Total 300 ml 1200 ml Balance 620 ml 200 ml Exam GENERAL: Patient is alert, oriented x 3, in no apparent distress; does not appear acutely or chronically ill. .Patient makes good eye contact, is conversant, interactive, coherent. Patient appears calm and comfortable and is able to follow commands. HEENT: Oropharynx is clear. There is no carotid bruit, no masses. Patient's pupils are equal, round and reactive to light bilaterally. Extraocular motions are intact. There is no scleral icterus. There is no facial asymmetry. NECK: Supple. LUNGS: Clear to auscultation bilaterally with good air entry. No Wheezes or crackles. HEART: S1, S2. No murmur, gallops or rubs. Regular rate and rhythm. ABDOMEN: Soft, nontender. Normoactive bowel sounds. There are no stigmata of chronic liver disease. BACK: no costovertebral angle tenderness. GENITOURINARY: Deferred. EXTREMITIES: No edema. There is no cyanosis, clubbing. There are 2+ pulses bilaterally distally. Lateral side of right hip is covered in dressing, drain removed. NEUROLOGIC: The patient has no lateralizing signs. Cranial nerves II-XII are intact. Results Result Diagram: 10/24/16 0450 10/24/16 0450 Results 24 hrs Laboratory Tests Test 10/24/16 04:50 Hemoglobin 9.6 L Hematocrit 29.5 L Sodium Level 139 Potassium Level 4.4 Chloride Level 110 Carbon Dioxide Level 29 Anion Gap 4 L Blood Urea Nitrogen 12 Creatinine 0.68 Glucose Level 101 Calcium Level 8.5 Medications Medications Current Medications Miscellaneous Information 1 ea NOTE XX ; Start 10/22/16 at 09:00; Stop 10/26/16 at 08:59 Celecoxib (Celebrex) 200 mg DAILY PO Last administered on 10/23/16 08:53; Admin Dose 200 MG; Start 10/23/16 at 09:00 Tramadol HCl (Ultram) 50 mg Q6 PO Last administered on 10/24/16 05:22; Admin Dose 50 MG; Start 10/22/16 at 18:00; Stop 10/25/16 at 17:59 Acetaminophen/ Hydrocodone Bitart ([place] (5/325)) 1 tab Q4H PRN PO PAIN LEVEL 1 -3 Last administered on 10/23/16 09:00; Admin Dose 1 TAB; Start 10/22/16 at 14: 00 Acetaminophen/ Hydrocodone Bitart ([place] (5/325)) 2 tab Q4H PRN PO PAIN LEVEL 4 -7 Last administered on 10/24/16 02:50; Admin Dose 2 TAB; Start 10/22/16 at 14: 00 Hydromorphone HCl (Dilaudid) 1 mg Q3H PRN IV PAIN LEVEL 8-10; Start 10/22/16 at 14:00 Ondansetron HCl (Zofran Inj) 4 mg Q6H PRN IV NAUSEA AND/OR VOMITING Last administered on 10/23/16 11:46; Admin Dose 4 MG; Start 10/22/16 at 14:00 Bisacodyl (Dulcolax Supp) 10 mg Q12H PRN MA CONSTIPATION; Start 10/22/16 at 14: 00 Magnesium Hydroxide (Milk Of Mag) 30 ml BID PRN PO CONSTIPATION; Start at 14:00 Sodium Biphosphate/ Sodium Phosphate (Fleet Enema) 133 ml DAILY PRN MA CONSTIPATION; Start 10/22/16 at 14:00 Docusate Sodium (Colace) 100 mg BID PO Last administered on 10/23/16 21:36; Admin Dose 100 MG; Start 10/22/16 at 21:00 Diphenhydramine HCl (Benadryl) 25 mg Q6H PRN PO PRURITUS; Start 10/22/16 at 14: 00 Aspirin (Ecotrin) 325 mg BID PO Last administered on 10/23/16 21:36; Admin Dose 325 MG; Start 10/23/16 at 09:00 Pantoprazole (Protonix Tab) 40 mg BID@06,18 PO Last administered on 10/24/16 05 :22; Admin Dose 40 MG; Start 10/22/16 at 18:00 MEETA PULIDO Oct 24, 2016 09:17
[2016-10-24] MEDS: ASPIRIN (EC) 325 MG TAB PO SCH (09:31)
[2016-10-24] MEDS: CELECOXIB 200 MG CAP PO SCH (09:31)
[2016-10-24] MEDS: DOCUSATE SODIUM 100 MG CAP PO SCH ×2 (09:31→16:28)
--- NOTE | 2016-10-24 10:42 | PN ---
Date/Time of Note Date/Time of Note DATE: 10/24/16 TIME: 10:41 Assessment/Plan Lines/Catheters IV Catheter Type (from Nrsg): Saline Lock Casas in Place (from Nrsg): No Assessment/Plan Assessment/Plan Stable POD #2, s/p right anterior ARIELA -pain meds as needed -ASA/SCDs -OOB with PT -check AM labs -dressing changed -d/c home today -follow up in the office on 11/01/16 Subjective 24 Hr Interval Summary No acute overnight events. Denies significant pain. VSS, afebrile. Would like to go home today. Exam/Review of Systems Vital Signs Vitals Vital Signs Date Time Temp Pulse Resp B/P Pulse Ox O2 Delivery O2 Flow Rate FiO2 10/24/16 08:35 99.2 62 18 111/58 94 10/23/16 00:40 Nasal Cannula 2.0 Intake and Output 10/23/16 10/23/16 10/24/16 15:00 23:00 07:00 Intake Total 920 ml 1400 ml Output Total 300 ml 1200 ml Balance 620 ml 200 ml Exam Free Text/Dictation Dressing dry Incision clean, dry, and intact without redness or drainage 5/ Quadriceps, Tibialis Anterior, EHL, Gastroc, Soleus, Peroneals Normal sensation Palpable DT/PT, CR <2 sec No distal edema Results Result Diagram: 10/24/1644910/24/16 045 PAULO ANTON PA-C Oct 24, 2016 10:42
--- NOTE | 2016-10-24 13:10 | DS ---
DATE OF ADMISSION: 10/22/2016 DATE OF DISCHARGE: 10/24/2016 CONDITION ON DISCHARGE: Stable ADMITTING DIAGNOSIS: Right hip osteoarthritis. DISCHARGE DIAGNOSIS: Status post right anterior total hip arthroplasty. PROCEDURE PERFORMED: Right anterior total hip arthroplasty. HOSPITAL COURSE: This is a 60-year-old female who was seen in clinic initially complaining of right knee pain. X-ray demonstrated advanced osteoarthritis of the right hip and it was thought she would benefit from a right anterior total hip arthroplasty. On 10/22/2016, the patient was admitted and taken to the operating room where she underwent a right anterior total hip arthroplasty. There were no intraoperative complications. The patient tolerated the procedure well. She was taken to the recovery room in stable condition. She was started on aspirin and SCDs for DVT prophylaxis. She remained hemodynamically stable and neurovascularly intact throughout her hospital stay. She began physical therapy on postoperative day 1, and was deemed stable for discharge home on postoperative day 2. Prior to discharge, the incision was inspected and noted to be clean, dry and intact. Dressing changes were done prior to patient going home. LABORATORY ANALYSIS: Hemoglobin 9.6, hematocrit 29.5, chemistry panel was within normal limits. DISCHARGE MEDICATIONS: 1. [place] 5/325 mg. 2. Tramadol 50 mg. 3. Protonix 40 mg. 4. Aspirin 325 mg. In addition, the patient should resume all of her normal home medications. DISCHARGE INSTRUCTIONS: The patient was discharged home in stable condition. She is to resume her normal diet. Activity includes weightbearing as tolerated on the right lower extremity. She should begin physical therapy with home health. She will be discharged home on the medications noted above and is to resume all of her normal home medications. The patient is to call the office or go to the emergency room for any concerns including increased redness, swelling, drainage, fever or any concerns regarding the operation or site of incision. FOLLOWUP: The patient is to follow up in the office on 11/01/2016. Dictated By: PAULO BARTHOLOMEW/BIJAN Conf#: [id number] DID#: [id number] MTDD
== END 2016-10-24 16:30 | disposition home or self-care (01) | DRG 470 ==
LOC: REC 08:08 → MS1 18:41
PROVIDERS: ADMIT Orthopaedic Surgery; ATTEND Orthopaedic Surgery
PROC: 0SR904A Replacement of Right Hip Joint with Ceramic on Polyethylene Synthetic Substitute, Uncemented, Open Approach (ICD-10-PCS; principal; 2016-10-22 10:00)
DX: M16.11 Unilateral primary osteoarthritis, right hip (principal)
CPT/HCPCS: 72170; 73530; 80048; 80061; 80076; 84443; 85014; 85018; 86850; 86900; 86901; 86920; 87081; 87086; 88304; 88311; 97003; 97116; 97162; 97166; 97530; 97535; C1776; C9290; J0171; J0690; J0697; J0735; J1100; J1170; J1885; J2250; J2274; J2405; J2710; J3010; J3370; J7120

== ENCOUNTER → 2016-11-01 | Outpatient (CLI) | payer OTHER ==
[~2016-11-01] MED LIST changes: +ASPI325T32 PO; -BUPIVACAINE LIPOSOME/PF 266 MG/20 ML VIAL INFIL ONE; -CEFAZOLIN 2GM/50 ML (PMX) 50 ML X1 BEFORE INCISION IVPB ONE; -CELECOXIB 400 MG PO X1 DOSE PO ONE; +HYDR-3498 PO; -LACTATED RINGER'S 1,000 ML IV SCH; -LIDOCAINE 2% (SDV) 5 ML INJ ONE; -PAIN COCKTAIL-CEFUROXIME IRR ONE; +PANT40TA4 PO; -PREGABALIN 300 MG PO X1 PO ONE; -SOD CHLORIDE 0.9% IV ONE; +TRAM50TA2 PO; -TRANEXAMIC ACID 880 MG in SOD CHLORIDE 0.9% 100 ML IVPB ONE; -TRANEXAMIC ACID 890 MG in SOD CHLORIDE 0.9% 100 ML IVPB ONE; -TRANEXAMIC ACID IV ONE; -oxyCODONE (CR) 10 MG TAB [oxyCONTIN] X1 DOSE PO ONE; -traMADOL 50 MG TAB X 1 DOSE PO ONE
--- NOTE | 2016-11-01 12:13 | HKNOTE ---
DATE OF SERVICE: 11/01/2016 INTERVAL HISTORY: The patient presents today for her first postoperative evaluation. She is 10 days status post right anterior total hip arthroplasty. She is doing well overall. She denies any fevers, chills, pus or drainage. She denies any significant pain. She is doing physical therapy with home health and has done 3 sessions so far. Additionally, she is compliant with her aspirin for DVT prophylaxis. She presents today for her first postoperative evaluation. PHYSICAL EXAMINATION: On exam today, she is alert and oriented x4 and in no acute distress. She is ambulating with a front-wheeled walker. Examination of the incision demonstrates it to be clean, dry and intact. Sabinal are in place. There is no erythema, warmth, pus or drainage noted. She has no pain with passive range of motion of the right hip joint. Homans sign is negative. Compartments are soft. She is neurovascularly intact distally. IMAGING: X-rays of the right hip were obtained today and reviewed by me. They demonstrate good anatomic alignment, with no fractures or dislocations identified. ASSESSMENT: Ten days status post right anterior total hip arthroplasty. PLAN: The corazon were removed today and Steri-Strips were applied. She is to continue ambulating with a front-wheeled walker and working with physical therapy. She can transition to a cane when tolerated and instructed by PT. She is to continue aspirin 325 mg twice daily for DVT prophylaxis. We will see her back in 4 weeks for a repeat evaluation. Dictated By: PAULO MAYO for DEYANIRA BARTHOLOMEW/BIJAN Conf#: [id number] DID#: [id number] MTDD
--- NOTE | 2016-11-01 12:23 | RADRPT ---
PROCEDURE: XR pelvis/right hip. CLINICAL INDICATION: Hip pain TECHNIQUE: AP pelvis/lateral right hip view performed. COMPARISON: 10/22/2016 FINDINGS: There is a right total hip replacement. There is no evidence of loosening of the prosthesis. No hard monroe failure is identified. There is mild left hip osteoarthrosis. This is associated with joint space narrowing, subchondral sc lerosis and osteophytosis. There is normal osseous mineralization. No fractures or osseous lesions are identified. The soft tissues are unremarkable. IMPRESSION: Right total hip replacement. Mild left hip osteoarthrosis. RPTAT: HGDB .Daniel Nunes MD, MD Date Time Electronically viewed and signed by .Daniel Nunes MD, MD on 11/01/2016 12:23 .B/
== END | disposition home or self-care (01) ==
LOC: HKI 10:00
PROVIDERS: ATTEND Orthopaedic Surgery
DX: Z47.1 Aftercare following joint replacement surgery (principal); Z96.641 Presence of right artificial hip joint
CPT/HCPCS: 73502

== ENCOUNTER → 2016-11-29 | Outpatient (CLI) | payer OTHER ==
--- NOTE | 2016-11-29 14:55 | RADRPT ---
PROCEDURE: XR Right hip and pelvis. CLINICAL INDICATION: Right hip pain. Pelvic pain. Postop. TECHNIQUE: Two views. Frontal pelvis and frontal right hip. COMPARISON: 11/01/2016. FINDINGS: There is no fracture or dislocation. The soft tissues are normal. There is a right hip total arthroplasty which appears satisfactory. There are mild degenerative changes of the left hip. There is no lytic or blastic lesion. The sacroiliac joints are unremarkable. IMPRESSION: 1. Satisfactory postoperative appearance of the right hip 2. . Mild degenerative changes of the left hip. RPTAT: QQ .Huber Chatterjee MD, Date Time Electronically viewed and signed by .Huber Chatterjee MD, on 11/29/2016 14:54 .R/
== END | disposition home or self-care (01) ==
LOC: HKI 11:13
PROVIDERS: ATTEND Orthopaedic Surgery
DX: Z96.641 Presence of right artificial hip joint (principal); M16.11 Unilateral primary osteoarthritis, right hip
CPT/HCPCS: 73502

== ENCOUNTER → 2017-01-17 | Outpatient (CLI) | payer OTHER ==
--- NOTE | 2017-01-17 16:21 | RADRPT ---
PROCEDURE: XR Right hip and pelvis. CLINICAL INDICATION: Right hip pain. Pelvic pain. Postop. TECHNIQUE: Three views. Frontal pelvis. Frontal and lateral right hip. COMPARISON: 11/29/2016. FINDINGS: There is no fracture or dislocation. The soft tissues are normal. There is a right hip total arthroplasty which appears satisfactory. There are degenerative changes of the left hip with osteophytes noted. There is no lytic or blastic lesion. The upper pelvis is not completely included on the image. IMPRESSION: 1. Satisfactory postoperative appearance of the right hip. 2. Mild degenerative changes of the left hip. 3. No change from 11/29/2016. RPTAT: QQ .Huber Chatterjee MD, MD Date Time Electronically viewed and signed by .Huber Chatterjee MD, on 01/17/2017 16:21 .R/
== END | disposition home or self-care (01) ==
LOC: HKI 13:42
PROVIDERS: ATTEND Orthopaedic Surgery
DX: M16.11 Unilateral primary osteoarthritis, right hip (principal); Z09 Encounter for follow-up examination after completed treatment for conditions other than malignant neoplasm; Z96.641 Presence of right artificial hip joint
CPT/HCPCS: 73502; Z7500; G0463

== ENCOUNTER → 2017-06-09 | Outpatient (CLI) | END | disposition home or self-care (01) ==